=== PATIENT | female | born 1975 ===

== ENCOUNTER 2018-11-30 09:58 | Inpatient (IN) ==
[2018-11-30] MEDS ORDERED: guaiFENesin 200 MG/10 ML UDCUP PO PRN (11:13)
[2018-11-30] MEDS ORDERED: ACETAMINOPHEN 325 MG TABLET PO PRN (11:13)
[2018-11-30] MEDS ORDERED: PROMETHAZINE INJ 25 MG in SODIUM CHLORIDE 0.9% 50 ML IV PRN (11:13)
[2018-11-30] MEDS ORDERED: traMADol 50 MG TABLET PO PRN (11:13)
[2018-11-30] MEDS ORDERED: chlorproMAZINE 25 MG TABLET PO PRN (11:13)
[2018-11-30] MEDS ORDERED: ALUMINUM/MAGNES/SIMETH MAX STR 30 ML UDCUP PO PRN (11:13)
[2018-11-30] MEDS ORDERED: MYLANTA/LIDO VISC 2:1 300 ML BOTTLE SWISH/SWAL PRN (11:13)
[2018-11-30] MEDS ORDERED: MAGNESIUM HYDROXIDE SUSP 30 ML UDCUP PO PRN (11:13)
[2018-11-30] MEDS ORDERED: BENZTROPINE 2 MG/2 ML AMP IV PRN (11:13)
[2018-11-30] MEDS ORDERED: LOPERAMIDE 2 MG CAPSULE PO PRN ×2 (11:13)
[2018-11-30] MEDS ORDERED: diphenhydrAMINE CAP 25 MG CAPSULE PO PRN (11:13)
[2018-11-30] MEDS ORDERED: chlorproMAZINE INJ 25 MG in SODIUM CHLORIDE 0.9% 100 ML IV PRN (11:13)
[2018-11-30] MEDS ORDERED: TEMAZEPAM 7.5 MG CAPSULE PO PRN (11:13)
[2018-11-30] MEDS ORDERED: chlorproMAZINE INJ 50 MG in SODIUM CHLORIDE 0.9% 100 ML IV PRN (11:13)
[2018-11-30] MEDS ORDERED: MYLANTA/LIDO VISC 2:1 300 ML BOTTLE SWISH/SPIT PRN (11:13)
[2018-11-30] MEDS ORDERED: ALPRAZolam 0.25 MG TABLET PO PRN (11:13)
[2018-11-30] MEDS ORDERED: LACTULOSE 20 GM/30 ML UDCUP PO PRN (11:13)
[2018-11-30 11:41] LABS: Basophils % 0.4 % (0.0-0.8); Eosinophils # 0.2 10*3/uL (0.0-0.87); Hematocrit 35.4 VOL% (35.7-47.0); Hemoglobin 11.3 GM/DL (12.0-16.0); Immature Granulocytes % 0.3 %; Immature Granulocytes Absolute 0.02 #; Lymphocytes # 2.3 10*3/uL (1.4-4.0); Mean Corpuscular HGB Conc 31.9 GM/DL (32-36); Mean Corpuscular Volume 90.3 FL (87-102); Mean Platelet Volume 10.2 FL (9.6-12.0); Monocytes % 4.9 % (1.7-12.7); Neutrophils % 60.4 % (38.7-73.9); Platelet Count 208 T/CUMM (130-400); Red Blood Count 3.92 MC/CUMM (3.8-5.5); Red Cell Distribution Width 14.1 % (9.3-17.3); White Blood Count 7.4 T/CUMM (4-12)
[2018-11-30 12:00] LABS: Bilirubin,Total 0.5 MG/DL (0.2-1.0); Calcium 8.3 MG/DL (8.5-10.1); Osmolality,Calculated 288.7 MOS/KG (273-304); Total Protein 6.6 G/DL (6.4-8.3); Uric Acid 3.2 MG/DL (2.6-6.0)
[2018-11-30] MEDS ORDERED: GLUCAGON 1 MG VIAL IM PRN (13:25)
[2018-11-30] MEDS ORDERED: DEXTROSE 50% 25 GM/50 ML VIAL IV PRN (13:25)
[2018-11-30 14:04] LABS: Apearance,Urine CLEAR (Clear); Bilirubin,Urine Negative (Negative); Blood, Urine Large mg/dL (Negative); Glucose,Urine (UA) >=500 mg/dL (Negative); Ketones,Urine 5 mg/dL (Negative); Mucus,Urine Occasional /LPF (Occasional); Nitrite,Urine Negative (Negative); Protein,Urine Negative; RBC,Urine 211 /HPF (0-4); Squamous Epithelial Cell,Urine Occasional /HPF (0-10); Urine Color Yellow (Yellow); Urine Specific Gravity 1.036 (1.001-1.035); WBC,Urine 1 /HPF (0-6)
[2018-11-30] MEDS: INSULIN REGULAR 100 UNIT/ML SUBCUT SCH ×2 (16:30→20:15)
[2018-12-01] MEDS ORDERED: PROMETHAZINE 25 MG TABLET PO PRN (09:12)
[2018-12-01] MEDS ORDERED: MOMETASONE/FORMOTEROL 200-5 INHALER 8.8 GM INH PRN (09:12)
[2018-12-01] MEDS: INSULIN REGULAR 100 UNIT/ML SUBCUT SCH ×4 (09:48→20:57)
[2018-12-01] MEDS: glyBURIDE/METFORMIN 5-500 MG TABLET PO SCH ×2 (09:49→20:56)
[2018-12-01] MEDS: CHOLECALCIFEROL 5,000 UNIT TABLET PO SCH ×2 (09:49→20:56)
[2018-12-01] MEDS: CALCIUM (CARBONATE) 500 MG TABLET PO SCH ×2 (09:49→15:55)
[2018-12-01] MEDS ORDERED: ALBUTEROL 2.5 MG/3 ML NEB RESP TX PRN (11:00)
[2018-12-01] MEDS: ONDANSETRON 4 MG/2 ML VIAL IV PRN (20:05)
[2018-12-01] MEDS: DILTIAZEM CD 240 MG CAPSULE PO SCH (20:57)
[2018-12-02] MEDS: glyBURIDE/METFORMIN 5-500 MG TABLET PO SCH ×2 (09:02→20:42)
[2018-12-02] MEDS: CHOLECALCIFEROL 5,000 UNIT TABLET PO SCH ×2 (09:02→20:42)
[2018-12-02] MEDS: CALCIUM (CARBONATE) 500 MG TABLET PO SCH ×2 (09:03→17:46)
[2018-12-02] MEDS: INSULIN REGULAR 100 UNIT/ML SUBCUT SCH ×5 (09:08→20:56)
[2018-12-02] MEDS ORDERED: FONDAPARINUX 2.5 MG/0.5 ML SYRINGE SUBCUT SCH (11:00)
[2018-12-02] MEDS: ONDANSETRON 4 MG/2 ML VIAL IV PRN ×2 (12:31→17:46)
[2018-12-02] MEDS: DILTIAZEM CD 240 MG CAPSULE PO SCH (20:42)
[2018-12-03 08:37] VITALS: BP 125/73
[2018-12-03] MEDS: CALCIUM (CARBONATE) 500 MG TABLET PO SCH (10:21)
[2018-12-03] MEDS: INSULIN REGULAR 100 UNIT/ML SUBCUT SCH (10:21)
[2018-12-03] MEDS: glyBURIDE/METFORMIN 5-500 MG TABLET PO SCH (10:21)
[2018-12-03] MEDS: CHOLECALCIFEROL 5,000 UNIT TABLET PO SCH (10:22)
== END 2018-12-03 11:01 | disposition home or self-care (01) | DRG 645 ==
LOC: N.4E 09:58
PROVIDERS: ADMIT Specialist; ATTEND Specialist

== ENCOUNTER 2022-03-20 16:00 | Inpatient (IN) ==
[2022-03-20] MEDS ORDERED: SODIUM CHLORIDE 0.9% 1,000 ML IV STA (16:58)
[2022-03-20] MEDS ORDERED: ONDANSETRON 4 MG/2 ML VIAL IV STA (16:58)
[2022-03-20 16:59] LABS: Basophils # 0.1 10*3/uL (0.0-0.2); Basophils % 0.3 % (0.0-0.8); Eosinophils # 0.1 10*3/uL (0.0-0.87); Eosinophils % 0.5 % (0.00-10.9); Hematocrit 31.8 VOL% (35.7-47.0); Hemoglobin 10.5 GM/DL (12.0-16.0); Immature Granulocytes % 0.8 %; Immature Granulocytes Absolute 0.13 #; Lymphocytes # 2.5 10*3/uL (1.4-4.0); Lymphocytes % 14.7 % (21.3-54.2); Mean Corpuscular Volume 98.5 FL (87-102); Mean Platelet Volume 9.6 FL (9.6-12.0); Monocytes % 5.7 % (1.7-12.7); Platelet Count 233 T/CUMM (130-400); Red Blood Count 3.23 MC/CUMM (3.8-5.5); Red Cell Distribution Width 13.2 % (9.3-17.3); White Blood Count 16.8 T/CUMM (4-12)
[2022-03-20 17:13] LABS: Albumin 2.2 G/DL (3.4-5.0); Bilirubin,Total 1.3 MG/DL (0.20-1.00); Calcium 6.9 MG/DL (8.5-10.1); Potassium 3.1 MMOL/L (3.5-5.1); Total Protein 6.9 G/DL (6.4-8.2)
[2022-03-20] MEDS ORDERED: DEXTROSE 10% 250 ML BAG IV PRN (17:42)
[2022-03-20] MEDS ORDERED: GLUCAGON 1 MG VIAL IM PRN (17:42)
[2022-03-20] MEDS ORDERED: MAGNESIUM HYDROXIDE SUSP 30 ML UDCUP PO PRN (17:42)
[2022-03-20] MEDS ORDERED: BISACODYL 10 MG SUPP RECTAL PRN (17:42)
[2022-03-20] MEDS ORDERED: PROMETHAZINE 25 MG/1 ML VIAL IM PRN (17:42)
[2022-03-20] MEDS ORDERED: IBUPROFEN 800 MG TABLET PO PRN (17:42)
[2022-03-20] MEDS: INSULIN REGULAR 100 UNIT/ML SUBCUT SCH ×2 (17:59→23:39)
[2022-03-20] MEDS: MEPERIDINE 50 MG/1 ML VIAL IV SCH (18:00)
[2022-03-20] MEDS: CLINDAMYCIN INJ 900 MG/50 ML PREMIX IV SCH (18:03)
[2022-03-20] MEDS: LACTATED RINGERS 1,000 ML IV SCH (18:40)
[2022-03-20] MEDS: AMPICILLIN INJ 2,000 MG in SODIUM CHLORIDE 0.9% 100 ML IV SCH (18:43)
[2022-03-20] MEDS: DOCUSATE SODIUM 100 MG CAPSULE PO SCH (20:35)
[2022-03-20] MEDS: GENTAMICIN INJ 360 MG in SODIUM CHLORIDE 0.9% 100 ML IV SCH (21:19)
[2022-03-21] MEDS: MEPERIDINE 50 MG/1 ML VIAL IV SCH ×3 (00:41→10:59)
[2022-03-21] MEDS: AMPICILLIN INJ 2,000 MG in SODIUM CHLORIDE 0.9% 100 ML IV SCH ×5 (00:42→23:56)
[2022-03-21] MEDS: CLINDAMYCIN INJ 900 MG/50 ML PREMIX IV SCH ×3 (02:33→18:02)
[2022-03-21 04:11] LABS: Basophils # 0.1 10*3/uL (0.0-0.2); Basophils % 0.3 % (0.0-0.8); Eosinophils # 0.1 10*3/uL (0.0-0.87); Eosinophils % 0.4 % (0.00-10.9); Hematocrit 28.4 VOL% (35.7-47.0); Hemoglobin 9.4 GM/DL (12.0-16.0); Immature Granulocytes % 0.8 %; Immature Granulocytes Absolute 0.14 #; Lymphocytes # 2.1 10*3/uL (1.4-4.0); Mean Corpuscular HGB Conc 33.1 GM/DL (32-36); Mean Platelet Volume 9.6 FL (9.6-12.0); Monocytes % 5.6 % (1.7-12.7); Neutrophils % 80.9 % (38.7-73.9); Platelet Count 202 T/CUMM (130-400); Red Blood Count 2.87 MC/CUMM (3.8-5.5); Red Cell Distribution Width 13.1 % (9.3-17.3); White Blood Count 17.8 T/CUMM (4-12)
[2022-03-21] MEDS: LACTATED RINGERS 1,000 ML IV SCH ×3 (04:30→23:56)
[2022-03-21] MEDS: INSULIN REGULAR 100 UNIT/ML SUBCUT SCH ×3 (05:16→17:52)
[2022-03-21] MEDS: ONDANSETRON 4 MG/2 ML VIAL IV PRN (06:07)
[2022-03-21] MEDS: DOCUSATE SODIUM 100 MG CAPSULE PO SCH ×2 (10:12→20:49)
[2022-03-21] MEDS: POTASSIUM CHLORIDE RIDER 10 MEQ/100 ML PREMIX IV PRN ×4 (15:04→18:49)
[2022-03-21] MEDS: GENTAMICIN INJ 360 MG in SODIUM CHLORIDE 0.9% 100 ML IV SCH (20:48)
[2022-03-21] MEDS: MEPERIDINE 50 MG/1 ML VIAL IV PRN (23:57)
[2022-03-22] MEDS: INSULIN REGULAR 100 UNIT/ML SUBCUT SCH ×5 (00:06→21:22)
[2022-03-22] MEDS: CLINDAMYCIN INJ 900 MG/50 ML PREMIX IV SCH ×2 (02:58→09:50)
[2022-03-22 05:05] LABS: Basophils # 0.1 10*3/uL (0.0-0.2); Basophils % 0.3 % (0.0-0.8); Eosinophils # 0.1 10*3/uL (0.0-0.87); Eosinophils % 0.5 % (0.00-10.9); Hematocrit 28.2 VOL% (35.7-47.0); Hemoglobin 9.2 GM/DL (12.0-16.0); Immature Granulocytes % 1.7 %; Immature Granulocytes Absolute 0.33 #; Lymphocytes # 2.4 10*3/uL (1.4-4.0); Lymphocytes % 12.5 % (21.3-54.2); Mean Corpuscular HGB Conc 32.6 GM/DL (32-36); Mean Platelet Volume 9.6 FL (9.6-12.0); Monocytes # 1.1 10*3/uL (0.11-0.8); Monocytes % 5.9 % (1.7-12.7); Neutrophils % 79.1 % (38.7-73.9); Platelet Count 248 T/CUMM (130-400); Red Blood Count 2.82 MC/CUMM (3.8-5.5); Red Cell Distribution Width 13.2 % (9.3-17.3); White Blood Count 19.3 T/CUMM (4-12)
[2022-03-22] MEDS: MEPERIDINE 50 MG/1 ML VIAL IV PRN ×2 (05:12→11:49)
[2022-03-22] MEDS: ONDANSETRON 4 MG/2 ML VIAL IV PRN (05:20)
[2022-03-22] MEDS: HYDROmorphone 1 MG/1 ML SYRINGE IV PRN (05:54)
[2022-03-22] MEDS: AMPICILLIN INJ 2,000 MG in SODIUM CHLORIDE 0.9% 100 ML IV SCH ×2 (05:54→12:19)
[2022-03-22] MEDS: LACTATED RINGERS 1,000 ML IV SCH ×4 (09:51→23:40)
[2022-03-22 09:53] LABS: Bilirubin,Total 1.2 MG/DL (0.20-1.00); Calcium 7.1 MG/DL (8.5-10.1); Osmolality,Calculated 269.1 MOS/KG (273-304); Total Protein 6.9 G/DL (6.4-8.2)
[2022-03-22 10:30] LABS: Basophils % 0.3 % (0.0-0.8); Hematocrit 36.1 VOL% (35.7-47.0); Immature Granulocytes % 2.5 %; Immature Granulocytes Absolute 0.18 #; Lymphocytes # 0.9 10*3/uL (1.4-4.0); Lymphocytes % 12.7 % (21.3-54.2); Mean Corpuscular Volume 98.4 FL (87-102); Mean Platelet Volume 9.6 FL (9.6-12.0); Monocytes # 0.3 10*3/uL (0.11-0.8); Monocytes % 4.7 % (1.7-12.7); Neutrophils % 79.8 % (38.7-73.9); Red Cell Distribution Width 13.2 % (9.3-17.3)
[2022-03-22 10:32] LABS: Hemoglobin 11.9 GM/DL (12.0-16.0); Platelet Count 309 T/CUMM (130-400); Red Blood Count 3.67 MC/CUMM (3.8-5.5); White Blood Count 7.2 T/CUMM (4-12)
[2022-03-22] MEDS: DOCUSATE SODIUM 100 MG CAPSULE PO SCH ×2 (11:20→21:22)
[2022-03-22 11:23] LABS: Band Neutrophils 14 % (0-10); Eosinophils 1 % (0-10); Lymphocytes 10 % (20-55); Nucleated Red Blood Cells 1 /100 WBC (0-5); Total Cells Counted 100
[2022-03-22] MEDS ORDERED: SODIUM CHLORIDE 0.9% 1,000 ML IV ONE ×2 (12:49→15:59)
[2022-03-22 13:58] LABS: Albumin 1.9 G/DL (3.4-5.0); Bilirubin,Total 1.2 MG/DL (0.20-1.00); Calcium 6.6 MG/DL (8.5-10.1); Osmolality,Calculated 266.2 MOS/KG (273-304); Potassium 3.1 MMOL/L (3.5-5.1); Total Protein 5.7 G/DL (6.4-8.2)
[2022-03-22] MEDS: PIPERACILLIN/TAZOBACTAM 3,375 MG in SODIUM CHLORIDE 0.9% 100 ML IV SCH ×2 (14:26→21:04)
[2022-03-22] MEDS: POTASSIUM CHLORIDE RIDER 10 MEQ/100 ML PREMIX IV PRN ×2 (14:28→15:38)
[2022-03-22] MEDS ORDERED: MAGNESIUM SULF RIDER 2 GM/50 ML PREMIX IV ONE (16:01)
[2022-03-22] MEDS ORDERED: MIDAZOLAM 2 MG/2 ML VIAL IV ONE (17:48)
[2022-03-22] MEDS ORDERED: NOREPINEPHRINE 4 MG/4 ML VIAL IV ONE (19:19)
[2022-03-22] MEDS: PHENYLEPHRINE DRIP 40 MG/250 ML PREMIX IV PRN (19:20)
[2022-03-23] MEDS: PHENYLEPHRINE DRIP 40 MG/250 ML PREMIX IV PRN ×4 (00:45→19:33)
[2022-03-23] MEDS ORDERED: SODIUM CHLORIDE 0.9% 500 ML IV ONE (03:50)
[2022-03-23] MEDS: LACTATED RINGERS 1,000 ML IV SCH ×4 (03:58→21:23)
[2022-03-23] MEDS: HYDROmorphone 1 MG/1 ML SYRINGE IV PRN ×3 (04:40→21:05)
[2022-03-23 04:53] LABS: Basophils % 0.1 % (0.0-0.8); Hematocrit 31.1 VOL% (35.7-47.0); Hemoglobin 10.5 GM/DL (12.0-16.0); Immature Granulocytes % 4.4 %; Lymphocytes # 1.5 10*3/uL (1.4-4.0); Lymphocytes % 4.7 % (21.3-54.2); Mean Corpuscular HGB Conc 33.8 GM/DL (32-36); Mean Corpuscular Volume 97.8 FL (87-102); Mean Platelet Volume 9.7 FL (9.6-12.0); Monocytes # 0.8 10*3/uL (0.11-0.8); Monocytes % 2.6 % (1.7-12.7); Neutrophils % 88.2 % (38.7-73.9); Platelet Count 278 T/CUMM (130-400); Red Blood Count 3.18 MC/CUMM (3.8-5.5); Red Cell Distribution Width 13.7 % (9.3-17.3); White Blood Count 32.1 T/CUMM (4-12)
[2022-03-23 05:03] LABS: Calcium 6.2 MG/DL (8.5-10.1); Osmolality,Calculated 268.1 MOS/KG (273-304); Potassium 3.4 MMOL/L (3.5-5.1)
[2022-03-23] MEDS: PIPERACILLIN/TAZOBACTAM 3,375 MG in SODIUM CHLORIDE 0.9% 100 ML IV SCH ×3 (05:55→21:05)
[2022-03-23] MEDS ORDERED: MAGNESIUM SULF RIDER 4 GM/100 ML PREMIX IV ONE (06:25)
[2022-03-23 06:26] LABS: Band Neutrophils 20 % (0-10); Lymphocytes 7 % (20-55); Metamyelocytes 1 %; Total Cells Counted 100
[2022-03-23 06:28] LABS: Macrocytosis Slight; Polychromasia Slight
[2022-03-23] MEDS: POTASSIUM CHLORIDE RIDER 10 MEQ/100 ML PREMIX IV PRN ×3 (06:50→12:33)
[2022-03-23] MEDS: INSULIN REGULAR 100 UNIT/ML SUBCUT SCH ×4 (07:39→20:34)
[2022-03-23] MEDS ORDERED: CALCIUM GLUCONATE RIDER 1,000 MG/50 ML PREMIX IV ONE (07:56)
[2022-03-23 09:05] LABS: INR 1.7; PT Patient Result 18.1 SECS (10.1-12.1)
[2022-03-23] MEDS ORDERED: fentaNYL 100 MCG/2 ML VIAL ONE (09:57)
[2022-03-23] MEDS ORDERED: MIDAZOLAM 2 MG/2 ML VIAL ONE (09:57)
[2022-03-23] MEDS: LEVOTHYROXINE 100 MCG TABLET PO SCH (12:01)
[2022-03-23] MEDS: PANTOPRAZOLE 40 MG VIAL IV SCH (12:01)
[2022-03-23] MEDS: DOCUSATE SODIUM 100 MG CAPSULE PO SCH ×2 (12:01→21:11)
[2022-03-24] MEDS: PHENYLEPHRINE DRIP 40 MG/250 ML PREMIX IV PRN ×2 (02:15→10:56)
[2022-03-24] MEDS: HYDROmorphone 1 MG/1 ML SYRINGE IV PRN ×2 (02:30→21:08)
[2022-03-24 04:00] LABS: Basophils # 0.2 10*3/uL (0.0-0.2); Basophils % 0.4 % (0.0-0.8); Eosinophils % 0.1 % (0.00-10.9); Hematocrit 34.7 VOL% (35.7-47.0); Hemoglobin 11.3 GM/DL (12.0-16.0); Immature Granulocytes % 3.7 %; Immature Granulocytes Absolute 1.27 #; Lymphocytes # 1.4 10*3/uL (1.4-4.0); Lymphocytes % 4.2 % (21.3-54.2); Mean Corpuscular HGB Conc 32.6 GM/DL (32-36); Mean Corpuscular Volume 100.3 FL (87-102); Mean Platelet Volume 9.7 FL (9.6-12.0); Monocytes # 0.7 10*3/uL (0.11-0.8); Monocytes % 2.1 % (1.7-12.7); Neutrophils % 89.5 % (38.7-73.9); Platelet Count 209 T/CUMM (130-400); Red Blood Count 3.46 MC/CUMM (3.8-5.5); Red Cell Distribution Width 14.1 % (9.3-17.3); White Blood Count 33.9 T/CUMM (4-12)
[2022-03-24 04:23] LABS: Albumin 1.6 G/DL (3.4-5.0); Band Neutrophils 4 % (0-10); Bilirubin,Total 1.5 MG/DL (0.20-1.00); Calcium 6.9 MG/DL (8.5-10.1); Lymphocytes 3 % (20-55); Osmolality,Calculated 264.5 MOS/KG (273-304); Platelet Estimate Adequate; Potassium 3.9 MMOL/L (3.5-5.1); Total Cells Counted 100; Total Protein 6.3 G/DL (6.4-8.2)
[2022-03-24] MEDS: PIPERACILLIN/TAZOBACTAM 3,375 MG in SODIUM CHLORIDE 0.9% 100 ML IV SCH ×3 (05:00→20:58)
[2022-03-24] MEDS: LACTATED RINGERS 1,000 ML IV SCH ×5 (05:00→19:20)
[2022-03-24] MEDS: INSULIN REGULAR 100 UNIT/ML SUBCUT SCH ×4 (07:31→20:15)
[2022-03-24] MEDS: DOCUSATE SODIUM 100 MG CAPSULE PO SCH ×2 (08:47→20:05)
[2022-03-24] MEDS: PANTOPRAZOLE 40 MG VIAL IV SCH (08:48)
[2022-03-24] MEDS: LEVOTHYROXINE 100 MCG TABLET PO SCH (08:48)
[2022-03-24] MEDS ORDERED: LINEZOLID INJ 600 MG/300 ML PREMIX IV SCH (11:00)
[2022-03-24] MEDS: ONDANSETRON 4 MG/2 ML VIAL IV PRN (15:01)
[2022-03-25] MEDS: LACTATED RINGERS 1,000 ML IV SCH ×3 (02:42→09:57)
[2022-03-25 03:49] LABS: Basophils # 0.1 10*3/uL (0.0-0.2); Basophils % 0.2 % (0.0-0.8); Eosinophils % 0.1 % (0.00-10.9); Immature Granulocytes % 1.5 %; Immature Granulocytes Absolute 0.38 #; Lymphocytes # 1.3 10*3/uL (1.4-4.0); Lymphocytes % 5.2 % (21.3-54.2); Mean Corpuscular HGB Conc 32.3 GM/DL (32-36); Mean Corpuscular Volume 100.3 FL (87-102); Mean Platelet Volume 9.9 FL (9.6-12.0); Monocytes # 0.4 10*3/uL (0.11-0.8); Monocytes % 1.5 % (1.7-12.7); Neutrophils % 91.5 % (38.7-73.9); Platelet Count 167 T/CUMM (130-400); Red Blood Count 3.09 MC/CUMM (3.8-5.5); Red Cell Distribution Width 14.1 % (9.3-17.3); White Blood Count 25.4 T/CUMM (4-12)
[2022-03-25 04:09] LABS: Osmolality,Calculated 265.5 MOS/KG (273-304); Potassium 3.8 MMOL/L (3.5-5.1)
[2022-03-25 04:10] LABS: Band Neutrophils 2 % (0-10); Lymphocytes 7 % (20-55); Total Cells Counted 100
[2022-03-25 04:11] LABS: Macrocytosis Slight
[2022-03-25 04:12] LABS: Polychromasia Slight
[2022-03-25] MEDS: POTASSIUM CHLORIDE RIDER 10 MEQ/100 ML PREMIX IV PRN ×2 (05:05→06:05)
[2022-03-25] MEDS: PIPERACILLIN/TAZOBACTAM 3,375 MG in SODIUM CHLORIDE 0.9% 100 ML IV SCH ×3 (05:06→20:07)
[2022-03-25] MEDS: INSULIN REGULAR 100 UNIT/ML SUBCUT SCH ×4 (07:43→21:02)
[2022-03-25] MEDS: PANTOPRAZOLE 40 MG VIAL IV SCH (08:53)
[2022-03-25] MEDS ORDERED: FUROSEMIDE 40 MG/4 ML VIAL IV ONE ×3 (11:50→23:50)
[2022-03-25] MEDS: HYDROmorphone 1 MG/1 ML SYRINGE IV PRN (13:12)
[2022-03-25] MEDS ORDERED: GLUCAGON 1 MG VIAL IM PRN (15:49)
[2022-03-25] MEDS ORDERED: DEXTROSE 50% 25 GM/50 ML VIAL IV PRN (15:49)
[2022-03-25] MEDS: LEVOTHYROXINE 100 MCG TABLET PO SCH (16:05)
[2022-03-25] MEDS: DOCUSATE SODIUM 100 MG CAPSULE PO SCH ×2 (16:05→20:07)
[2022-03-26] MEDS: HYDROmorphone 1 MG/1 ML SYRINGE IV PRN (00:02)
[2022-03-26 04:08] LABS: Basophils # 0.1 10*3/uL (0.0-0.2); Basophils % 0.4 % (0.0-0.8); Eosinophils # 0.1 10*3/uL (0.0-0.87); Eosinophils % 0.3 % (0.00-10.9); Hematocrit 32.6 VOL% (35.7-47.0); Hemoglobin 10.5 GM/DL (12.0-16.0); Immature Granulocytes % 1.8 %; Immature Granulocytes Absolute 0.39 #; Lymphocytes # 1.5 10*3/uL (1.4-4.0); Lymphocytes % 6.9 % (21.3-54.2); Mean Corpuscular HGB Conc 32.2 GM/DL (32-36); Mean Platelet Volume 9.4 FL (9.6-12.0); Monocytes # 0.6 10*3/uL (0.11-0.8); Monocytes % 2.9 % (1.7-12.7); NRBC # 0.02 10*3/uL; Neutrophils % 87.7 % (38.7-73.9); Platelet Count 175 T/CUMM (130-400); Red Blood Count 3.26 MC/CUMM (3.8-5.5); Red Cell Distribution Width 13.9 % (9.3-17.3); White Blood Count 21.5 T/CUMM (4-12)
[2022-03-26 04:26] LABS: Calcium 7.1 MG/DL (8.5-10.1); Osmolality,Calculated 266.2 MOS/KG (273-304); Potassium 3.4 MMOL/L (3.5-5.1)
[2022-03-26 04:31] LABS: Lymphocytes 4 % (20-55); Platelet Estimate Adequate; Total Cells Counted 100
[2022-03-26] MEDS: PIPERACILLIN/TAZOBACTAM 3,375 MG in SODIUM CHLORIDE 0.9% 100 ML IV SCH (05:10)
[2022-03-26] MEDS: POTASSIUM CHLORIDE RIDER 10 MEQ/100 ML PREMIX IV PRN ×2 (05:10→06:14)
[2022-03-26] MEDS ORDERED: ENOXAPARIN 40 MG/0.4 ML SYRINGE SUBCUT SCH (08:00)
[2022-03-26] MEDS: LEVOTHYROXINE 100 MCG TABLET PO SCH (08:01)
[2022-03-26] MEDS: DOCUSATE SODIUM 100 MG CAPSULE PO SCH (08:01)
[2022-03-26] MEDS: INSULIN REGULAR 100 UNIT/ML SUBCUT SCH ×4 (08:08→21:13)
[2022-03-26] MEDS ORDERED: POTASSIUM CHLORIDE 20 MEQ TABLET PO ONE (08:36)
[2022-03-26] MEDS ORDERED: FUROSEMIDE 40 MG/4 ML VIAL IV SCH (09:00)
[2022-03-26] MEDS: FUROSEMIDE 40 MG/4 ML VIAL IV SCH (10:38)
[2022-03-26] MEDS: cefTRIAXone 2,000 MG in SODIUM CHLORIDE 0.9% 100 ML IV SCH (10:38)
[2022-03-27] MEDS: HYDROmorphone 1 MG/1 ML SYRINGE IV PRN (04:28)
[2022-03-27 05:14] LABS: Basophils # 0.1 10*3/uL (0.0-0.2); Basophils % 0.5 % (0.0-0.8); Eosinophils % 0.2 % (0.00-10.9); Hematocrit 30.9 VOL% (35.7-47.0); Hemoglobin 10.2 GM/DL (12.0-16.0); Immature Granulocytes % 7.5 %; Immature Granulocytes Absolute 1.27 #; Lymphocytes # 2.2 10*3/uL (1.4-4.0); Lymphocytes % 12.7 % (21.3-54.2); Mean Corpuscular Volume 97.5 FL (87-102); Mean Platelet Volume 9.6 FL (9.6-12.0); Monocytes # 1.2 10*3/uL (0.11-0.8); Monocytes % 6.9 % (1.7-12.7); NRBC # 0.05 10*3/uL; Neutrophils % 72.2 % (38.7-73.9); Platelet Count 177 T/CUMM (130-400); Red Blood Count 3.17 MC/CUMM (3.8-5.5); Red Cell Distribution Width 13.7 % (9.3-17.3); White Blood Count 16.9 T/CUMM (4-12)
[2022-03-27 05:36] LABS: Albumin 1.6 G/DL (3.4-5.0); Bilirubin,Total 1.4 MG/DL (0.20-1.00); Calcium 7.3 MG/DL (8.5-10.1); Osmolality,Calculated 265.4 MOS/KG (273-304); Potassium 3.2 MMOL/L (3.5-5.1); Total Protein 6.3 G/DL (6.4-8.2)
[2022-03-27 05:38] LABS: Eosinophils 1 % (0-10); Hypochromia Slight; Lymphocytes 12 % (20-55); Macrocytosis Slight; Total Cells Counted 100
[2022-03-27 05:39] LABS: Platelet Estimate Adequate; Polychromasia Slight
[2022-03-27] MEDS: INSULIN REGULAR 100 UNIT/ML SUBCUT SCH ×4 (07:50→20:29)
[2022-03-27] MEDS: cefTRIAXone 2,000 MG in SODIUM CHLORIDE 0.9% 100 ML IV SCH (08:58)
[2022-03-27] MEDS: POTASSIUM CHLORIDE RIDER 10 MEQ/100 ML PREMIX IV PRN ×4 (09:04→14:17)
[2022-03-27] MEDS: LEVOTHYROXINE 100 MCG TABLET PO SCH (09:58)
[2022-03-27] MEDS: FUROSEMIDE 40 MG/4 ML VIAL IV SCH (10:57)
[2022-03-28 05:11] LABS: Basophils % 0.2 % (0.0-0.8); Eosinophils # 0.1 10*3/uL (0.0-0.87); Eosinophils % 0.4 % (0.00-10.9); Hematocrit 31.8 VOL% (35.7-47.0); Hemoglobin 10.4 GM/DL (12.0-16.0); Immature Granulocytes % 14.7 %; Immature Granulocytes Absolute 2.46 #; Lymphocytes # 2.3 10*3/uL (1.4-4.0); Lymphocytes % 13.9 % (21.3-54.2); Mean Corpuscular HGB Conc 32.7 GM/DL (32-36); Mean Corpuscular Volume 97.2 FL (87-102); Mean Platelet Volume 9.5 FL (9.6-12.0); Monocytes # 1.4 10*3/uL (0.11-0.8); Monocytes % 8.4 % (1.7-12.7); NRBC # 0.12 10*3/uL; Neutrophils % 62.4 % (38.7-73.9); Platelet Count 166 T/CUMM (130-400); Red Blood Count 3.27 MC/CUMM (3.8-5.5); White Blood Count 16.8 T/CUMM (4-12)
[2022-03-28 05:34] LABS: Albumin 1.5 G/DL (3.4-5.0); Bilirubin,Total 1.3 MG/DL (0.20-1.00); Calcium 7.4 MG/DL (8.5-10.1); Osmolality,Calculated 265.4 MOS/KG (273-304); Potassium 3.5 MMOL/L (3.5-5.1); Total Protein 6.4 G/DL (6.4-8.2)
[2022-03-28 05:55] LABS: Lymphocytes 9 % (20-55); Nucleated Red Blood Cells 1 /100 WBC (0-5); Total Cells Counted 100
[2022-03-28 05:56] LABS: Platelet Estimate Adequate
[2022-03-28] MEDS ORDERED: DIAZEPAM 5 MG TABLET PO ONE (07:44)
[2022-03-28] MEDS ORDERED: MIDAZOLAM 2 MG/2 ML VIAL IV ONE (07:46)
[2022-03-28] MEDS ORDERED: fentaNYL 100 MCG/2 ML VIAL IV ONE (07:47)
[2022-03-28] MEDS: SODIUM CHLORIDE 0.45% 1,000 ML IV SCH (08:40)
[2022-03-28] MEDS: INSULIN REGULAR 100 UNIT/ML SUBCUT SCH ×4 (10:09→20:10)
[2022-03-28] MEDS: LEVOTHYROXINE 100 MCG TABLET PO SCH (10:15)
[2022-03-28] MEDS: FUROSEMIDE 40 MG/4 ML VIAL IV SCH (10:16)
[2022-03-28] MEDS: cefTRIAXone 2,000 MG in SODIUM CHLORIDE 0.9% 100 ML IV SCH (10:16)
[2022-03-28] MEDS: HYDROmorphone 1 MG/1 ML SYRINGE IV PRN (20:55)
[2022-03-29 05:09] LABS: Basophils # 0.2 10*3/uL (0.0-0.2); Basophils % 0.7 % (0.0-0.8); Eosinophils % 0.1 % (0.00-10.9); Hematocrit 35.5 VOL% (35.7-47.0); Hemoglobin 11.8 GM/DL (12.0-16.0); Immature Granulocytes % 11.4 %; Lymphocytes # 2.9 10*3/uL (1.4-4.0); Lymphocytes % 10.6 % (21.3-54.2); Mean Corpuscular HGB Conc 33.2 GM/DL (32-36); Mean Corpuscular Volume 97.3 FL (87-102); Mean Platelet Volume 9.1 FL (9.6-12.0); Monocytes # 1.8 10*3/uL (0.11-0.8); Monocytes % 6.7 % (1.7-12.7); NRBC # 0.36 10*3/uL; Neutrophils % 70.5 % (38.7-73.9); Platelet Count 161 T/CUMM (130-400); Red Blood Count 3.65 MC/CUMM (3.8-5.5); Red Cell Distribution Width 14.1 % (9.3-17.3); White Blood Count 27.1 T/CUMM (4-12)
[2022-03-29 05:31] LABS: Lymphocytes 6 % (20-55); Nucleated Red Blood Cells 2 /100 WBC (0-5); Platelet Estimate Adequate; Total Cells Counted 100
[2022-03-29] MEDS: INSULIN REGULAR 100 UNIT/ML SUBCUT SCH ×4 (08:13→20:56)
[2022-03-29] MEDS: SODIUM CHLORIDE 0.45% 1,000 ML IV SCH (09:32)
[2022-03-29] MEDS: DOCUSATE SODIUM 100 MG CAPSULE PO PRN (09:36)
[2022-03-29] MEDS: LEVOTHYROXINE 100 MCG TABLET PO SCH (09:36)
[2022-03-29] MEDS: POTASSIUM CHLORIDE 20 MEQ TABLET PO PRN ×3 (09:36→14:06)
[2022-03-29] MEDS: FUROSEMIDE 40 MG/4 ML VIAL IV SCH (09:37)
[2022-03-29] MEDS: PIPERACILLIN/TAZOBACTAM 3,375 MG in SODIUM CHLORIDE 0.9% 100 ML IV SCH ×2 (09:45→17:25)
[2022-03-30] MEDS: PIPERACILLIN/TAZOBACTAM 3,375 MG in SODIUM CHLORIDE 0.9% 100 ML IV SCH ×3 (02:51→17:58)
[2022-03-30 06:02] LABS: Basophils # 0.1 10*3/uL (0.0-0.2); Basophils % 0.4 % (0.0-0.8); Eosinophils # 0.1 10*3/uL (0.0-0.87); Eosinophils % 0.2 % (0.00-10.9); Hemoglobin 10.3 GM/DL (12.0-16.0); Immature Granulocytes % 8.3 %; Immature Granulocytes Absolute 2.26 #; Lymphocytes # 2.5 10*3/uL (1.4-4.0); Lymphocytes % 9.2 % (21.3-54.2); Mean Corpuscular HGB Conc 33.2 GM/DL (32-36); Mean Corpuscular Volume 97.5 FL (87-102); Mean Platelet Volume 9.7 FL (9.6-12.0); Monocytes # 1.4 10*3/uL (0.11-0.8); Monocytes % 5.2 % (1.7-12.7); Neutrophils % 76.7 % (38.7-73.9); Platelet Count 129 T/CUMM (130-400); Red Blood Count 3.18 MC/CUMM (3.8-5.5); Red Cell Distribution Width 14.4 % (9.3-17.3); White Blood Count 27.2 T/CUMM (4-12)
[2022-03-30 06:23] LABS: Lymphocytes 5 % (20-55); Platelet Estimate Normal; Total Cells Counted 100
[2022-03-30 06:24] LABS: Hypochromia Slight
[2022-03-30] MEDS: INSULIN REGULAR 100 UNIT/ML SUBCUT SCH ×4 (08:26→20:29)
[2022-03-30 08:34] LABS: Albumin 1.5 G/DL (3.4-5.0); Bilirubin,Total 1.4 MG/DL (0.20-1.00); Calcium 7.3 MG/DL (8.5-10.1); Osmolality,Calculated 258.9 MOS/KG (273-304); Potassium 3.9 MMOL/L (3.5-5.1); Total Protein 6.4 G/DL (6.4-8.2)
[2022-03-30] MEDS: LEVOTHYROXINE 100 MCG TABLET PO SCH (08:51)
[2022-03-30] MEDS: FUROSEMIDE 40 MG/4 ML VIAL IV SCH (08:51)
[2022-03-30] MEDS: HYDROmorphone 1 MG/1 ML SYRINGE IV PRN ×2 (12:10→20:35)
[2022-03-31] MEDS: PIPERACILLIN/TAZOBACTAM 3,375 MG in SODIUM CHLORIDE 0.9% 100 ML IV SCH ×3 (01:39→17:51)
[2022-03-31 06:12] LABS: Basophils # 0.1 10*3/uL (0.0-0.2); Basophils % 0.4 % (0.0-0.8); Eosinophils % 0.2 % (0.00-10.9); Hematocrit 31.5 VOL% (35.7-47.0); Hemoglobin 10.3 GM/DL (12.0-16.0); Immature Granulocytes % 5.6 %; Immature Granulocytes Absolute 1.49 #; Lymphocytes # 2.1 10*3/uL (1.4-4.0); Mean Corpuscular HGB Conc 32.7 GM/DL (32-36); Mean Platelet Volume 9.5 FL (9.6-12.0); Monocytes # 1.4 10*3/uL (0.11-0.8); Monocytes % 5.1 % (1.7-12.7); NRBC # 0.03 10*3/uL; Neutrophils % 80.7 % (38.7-73.9); Platelet Count 127 T/CUMM (130-400); Red Blood Count 3.15 MC/CUMM (3.8-5.5); Red Cell Distribution Width 14.8 % (9.3-17.3); White Blood Count 26.6 T/CUMM (4-12)
[2022-03-31 06:31] LABS: Albumin 1.5 G/DL (3.4-5.0); Bilirubin,Total 1.5 MG/DL (0.20-1.00); Calcium 7.4 MG/DL (8.5-10.1); Osmolality,Calculated 256.2 MOS/KG (273-304); Potassium 3.6 MMOL/L (3.5-5.1); Total Protein 6.8 G/DL (6.4-8.2)
[2022-03-31 06:48] LABS: Band Neutrophils 2 % (0-10); Lymphocytes 4 % (20-55); Total Cells Counted 100
[2022-03-31 06:49] LABS: Hypochromia Slight; Macrocytosis Slight; Platelet Estimate Adequate; Polychromasia Slight
[2022-03-31] MEDS: INSULIN REGULAR 100 UNIT/ML SUBCUT SCH ×4 (09:49→21:45)
[2022-03-31] MEDS: LEVOTHYROXINE 100 MCG TABLET PO SCH (10:10)
[2022-03-31] MEDS: FUROSEMIDE 40 MG/4 ML VIAL IV SCH (10:12)
[2022-03-31] MEDS: DOCUSATE SODIUM 100 MG CAPSULE PO PRN (10:32)
[2022-03-31] MEDS: HYDROmorphone 1 MG/1 ML SYRINGE IV PRN (10:41)
[2022-04-01] MEDS: PIPERACILLIN/TAZOBACTAM 3,375 MG in SODIUM CHLORIDE 0.9% 100 ML IV SCH ×3 (01:24→17:19)
[2022-04-01] MEDS: ACETAMINOPHEN 325 MG TABLET PO PRN ×2 (02:10→08:50)
[2022-04-01 06:11] LABS: Basophils # 0.1 10*3/uL (0.0-0.2); Basophils % 0.3 % (0.0-0.8); Eosinophils % 0.1 % (0.00-10.9); Hematocrit 30.2 VOL% (35.7-47.0); Hemoglobin 9.8 GM/DL (12.0-16.0); Immature Granulocytes % 3.8 %; Immature Granulocytes Absolute 0.92 #; Lymphocytes # 2.4 10*3/uL (1.4-4.0); Lymphocytes % 9.8 % (21.3-54.2); Mean Corpuscular HGB Conc 32.5 GM/DL (32-36); Mean Corpuscular Volume 98.7 FL (87-102); Mean Platelet Volume 9.6 FL (9.6-12.0); Monocytes # 1.4 10*3/uL (0.11-0.8); Monocytes % 5.9 % (1.7-12.7); Neutrophils % 80.1 % (38.7-73.9); Platelet Count 137 T/CUMM (130-400); Red Blood Count 3.06 MC/CUMM (3.8-5.5); White Blood Count 24.2 T/CUMM (4-12)
[2022-04-01 06:43] LABS: Band Neutrophils 1 % (0-10); Eosinophils 1 % (0-10); Hypochromia Slight; Lymphocytes 4 % (20-55); Total Cells Counted 100
[2022-04-01 06:44] LABS: Macrocytosis Slight; Platelet Estimate Adequate; Polychromasia Slight
[2022-04-01] MEDS: INSULIN REGULAR 100 UNIT/ML SUBCUT SCH ×4 (07:42→21:27)
[2022-04-01 08:22] LABS: Calcium 7.2 MG/DL (8.5-10.1); Osmolality,Calculated 259.9 MOS/KG (273-304); Potassium 3.7 MMOL/L (3.5-5.1)
[2022-04-01] MEDS: FUROSEMIDE 40 MG/4 ML VIAL IV SCH (08:49)
[2022-04-01] MEDS: LEVOTHYROXINE 100 MCG TABLET PO SCH (08:49)
[2022-04-01] MEDS: POTASSIUM CHLORIDE 20 MEQ TABLET PO PRN (16:11)
[2022-04-02] MEDS: PIPERACILLIN/TAZOBACTAM 3,375 MG in SODIUM CHLORIDE 0.9% 100 ML IV SCH ×3 (01:30→17:51)
[2022-04-02 05:00] LABS: Basophils # 0.1 10*3/uL (0.0-0.2); Basophils % 0.3 % (0.0-0.8); Eosinophils % 0.1 % (0.00-10.9); Hematocrit 29.4 VOL% (35.7-47.0); Hemoglobin 9.5 GM/DL (12.0-16.0); Immature Granulocytes % 2.9 %; Lymphocytes # 2.1 10*3/uL (1.4-4.0); Lymphocytes % 10.1 % (21.3-54.2); Mean Corpuscular HGB Conc 32.3 GM/DL (32-36); Mean Platelet Volume 9.3 FL (9.6-12.0); Monocytes # 1.4 10*3/uL (0.11-0.8); Monocytes % 6.9 % (1.7-12.7); Neutrophils % 79.7 % (38.7-73.9); Platelet Count 145 T/CUMM (130-400); Red Blood Count 2.91 MC/CUMM (3.8-5.5); Red Cell Distribution Width 15.1 % (9.3-17.3); White Blood Count 20.6 T/CUMM (4-12)
[2022-04-02 05:25] LABS: Calcium 7.2 MG/DL (8.5-10.1); Osmolality,Calculated 259.8 MOS/KG (273-304); Potassium 3.4 MMOL/L (3.5-5.1)
[2022-04-02 05:26] LABS: Hypochromia Slight; Lymphocytes 3 % (20-55); Microcytosis Slight; Platelet Estimate Adequate; Total Cells Counted 100
[2022-04-02] MEDS: INSULIN REGULAR 100 UNIT/ML SUBCUT SCH ×4 (08:15→22:07)
[2022-04-02] MEDS: FUROSEMIDE 40 MG/4 ML VIAL IV SCH (10:10)
[2022-04-02] MEDS: POTASSIUM CHLORIDE 20 MEQ TABLET PO PRN (14:21)
[2022-04-02] MEDS: LEVOTHYROXINE 100 MCG TABLET PO SCH (14:21)
[2022-04-02] MEDS: DOCUSATE SODIUM 100 MG CAPSULE PO PRN (22:15)
[2022-04-03] MEDS: PIPERACILLIN/TAZOBACTAM 3,375 MG in SODIUM CHLORIDE 0.9% 100 ML IV SCH ×3 (02:03→18:12)
[2022-04-03 05:15] LABS: Basophils # 0.1 10*3/uL (0.0-0.2); Basophils % 0.3 % (0.0-0.8); Eosinophils # 0.1 10*3/uL (0.0-0.87); Eosinophils % 0.2 % (0.00-10.9); Hematocrit 29.2 VOL% (35.7-47.0); Hemoglobin 9.6 GM/DL (12.0-16.0); Immature Granulocytes % 1.7 %; Immature Granulocytes Absolute 0.35 #; Lymphocytes # 2.2 10*3/uL (1.4-4.0); Lymphocytes % 10.5 % (21.3-54.2); Mean Corpuscular HGB Conc 32.9 GM/DL (32-36); Mean Corpuscular Volume 99.3 FL (87-102); Mean Platelet Volume 9.1 FL (9.6-12.0); Monocytes # 1.6 10*3/uL (0.11-0.8); Monocytes % 7.9 % (1.7-12.7); Neutrophils % 79.4 % (38.7-73.9); Platelet Count 160 T/CUMM (130-400); Red Blood Count 2.94 MC/CUMM (3.8-5.5); White Blood Count 20.5 T/CUMM (4-12)
[2022-04-03 05:32] LABS: Calcium 7.5 MG/DL (8.5-10.1); Osmolality,Calculated 258.9 MOS/KG (273-304); Potassium 3.6 MMOL/L (3.5-5.1)
[2022-04-03 05:39] LABS: Lymphocytes 10 % (20-55); Total Cells Counted 100
[2022-04-03 05:40] LABS: Hypochromia Slight; Macrocytosis Slight
[2022-04-03 05:41] LABS: Platelet Estimate Adequate; Polychromasia Slight
[2022-04-03] MEDS: INSULIN REGULAR 100 UNIT/ML SUBCUT SCH ×4 (08:23→20:45)
[2022-04-03] MEDS ORDERED: MIDAZOLAM 2 MG/2 ML VIAL IV ONE (10:29)
[2022-04-03] MEDS ORDERED: DIAZEPAM 5 MG TABLET PO ONE (10:29)
[2022-04-03] MEDS ORDERED: SODIUM CHLORIDE 0.45% 1,000 ML IV SCH (10:30)
[2022-04-03] MEDS: fentaNYL 100 MCG/2 ML VIAL IV ONE ×2 (12:06→15:25)
[2022-04-03] MEDS: LEVOTHYROXINE 100 MCG TABLET PO SCH (15:24)
[2022-04-04] MEDS: PIPERACILLIN/TAZOBACTAM 3,375 MG in SODIUM CHLORIDE 0.9% 100 ML IV SCH ×2 (00:22→10:20)
[2022-04-04 04:56] LABS: Basophils # 0.1 10*3/uL (0.0-0.2); Basophils % 0.3 % (0.0-0.8); Eosinophils # 0.1 10*3/uL (0.0-0.87); Eosinophils % 0.3 % (0.00-10.9); Hematocrit 33.2 VOL% (35.7-47.0); Hemoglobin 10.1 GM/DL (12.0-16.0); Immature Granulocytes % 1.6 %; Immature Granulocytes Absolute 0.25 #; Lymphocytes # 2.3 10*3/uL (1.4-4.0); Lymphocytes % 14.1 % (21.3-54.2); Mean Corpuscular HGB Conc 30.4 GM/DL (32-36); Mean Corpuscular Volume 102.8 FL (87-102); Monocytes # 1.3 10*3/uL (0.11-0.8); Monocytes % 8.2 % (1.7-12.7); Neutrophils % 75.5 % (38.7-73.9); Platelet Count 180 T/CUMM (130-400); Red Blood Count 3.23 MC/CUMM (3.8-5.5); Red Cell Distribution Width 15.1 % (9.3-17.3); White Blood Count 15.9 T/CUMM (4-12)
[2022-04-04 05:24] LABS: Calcium 7.7 MG/DL (8.5-10.1); Osmolality,Calculated 262.5 MOS/KG (273-304); Potassium 3.7 MMOL/L (3.5-5.1)
[2022-04-04] MEDS: LEVOTHYROXINE 100 MCG TABLET PO SCH (10:20)
[2022-04-04] MEDS: INSULIN REGULAR 100 UNIT/ML SUBCUT SCH ×2 (10:21→14:54)
[2022-04-04 12:22] VITALS: BP 105/64
== END 2022-04-04 15:30 | disposition home or self-care (01) | DRG 871 ==
LOC: N.ED 16:00 → N.EDINP 17:20 → N.5E 19:12 → N.ICU 03-22 18:15 → N.5E 03-26 08:40
PROVIDERS: ADMIT Obstetrics & Gynecology; ATTEND Obstetrics & Gynecology

== ENCOUNTER 2022-04-28 20:11 | Inpatient (IN) ==
[2022-04-28] MEDS ORDERED: ONDANSETRON 4 MG/2 ML VIAL IV ONE (20:35)
[2022-04-28] MEDS ORDERED: MORPHINE 2 MG/1 ML SYRINGE IV ONE (20:35)
[2022-04-28] MEDS ORDERED: VANCOMYCIN INJ 1,000 MG in SODIUM CHLORIDE 0.9% 250 ML IV STA (20:38)
[2022-04-28] MEDS ORDERED: ACETAMINOPHEN 325 MG TABLET PO PRN (20:43)
[2022-04-28] MEDS: DEXTROSE 5% LACTATED RINGERS 1,000 ML IV SCH (21:56)
[2022-04-28] MEDS: PIPERACILLIN/TAZOBACTAM 3,375 MG in SODIUM CHLORIDE 0.9% 100 ML IV SCH (21:59)
[2022-04-29] MEDS: INSULIN LISPRO 100 UNIT/ML SUBCUT SCH ×4 (01:00→18:10)
[2022-04-29] MEDS: ONDANSETRON 4 MG/2 ML VIAL IV PRN ×2 (04:13→09:08)
[2022-04-29] MEDS: MORPHINE 2 MG/1 ML SYRINGE IV PRN (04:16)
[2022-04-29] MEDS: PIPERACILLIN/TAZOBACTAM 3,375 MG in SODIUM CHLORIDE 0.9% 100 ML IV SCH ×3 (05:37→21:25)
[2022-04-29 06:04] LABS: Basophils % 0.3 % (0.0-0.8); Eosinophils # 0.3 10*3/uL (0.0-0.87); Eosinophils % 3.2 % (0.00-10.9); Hematocrit 29.4 VOL% (35.7-47.0); Hemoglobin 8.9 GM/DL (12.0-16.0); Immature Granulocytes % 0.8 %; Immature Granulocytes Absolute 0.07 #; Lymphocytes # 2.4 10*3/uL (1.4-4.0); Lymphocytes % 27.1 % (21.3-54.2); Mean Corpuscular HGB Conc 30.3 GM/DL (32-36); Mean Corpuscular Volume 103.2 FL (87-102); Mean Platelet Volume 8.5 FL (9.6-12.0); Monocytes # 0.6 10*3/uL (0.11-0.8); Monocytes % 7.1 % (1.7-12.7); Neutrophils % 61.5 % (38.7-73.9); Platelet Count 254 T/CUMM (130-400); Red Blood Count 2.85 MC/CUMM (3.8-5.5); Red Cell Distribution Width 15.7 % (9.3-17.3); White Blood Count 8.7 T/CUMM (4-12)
[2022-04-29 06:34] LABS: Albumin 1.4 G/DL (3.4-5.0); Bilirubin,Total 0.6 MG/DL (0.20-1.00); Osmolality,Calculated 276.5 MOS/KG (273-304); Potassium 3.5 MMOL/L (3.5-5.1)
[2022-04-29 08:08] LABS: INR 1.4; PT Patient Result 14.8 SECS (10.1-12.1)
[2022-04-29] MEDS: VANCOMYCIN INJ 1,250 MG in SODIUM CHLORIDE 0.9% 250 ML IV SCH ×2 (09:53→21:24)
[2022-04-29] MEDS: PANTOPRAZOLE 40 MG TABLET PO SCH (09:56)
[2022-04-29] MEDS ORDERED: GLUCAGON 1 MG VIAL IM PRN ×2 (11:47→18:38)
[2022-04-29] MEDS ORDERED: DEXTROSE 10% 250 ML BAG IV PRN (11:47)
[2022-04-29] MEDS ORDERED: DIAZEPAM 5 MG TABLET PO ONE (13:25)
[2022-04-29] MEDS ORDERED: MIDAZOLAM 2 MG/2 ML VIAL IV ONE (13:25)
[2022-04-29] MEDS ORDERED: fentaNYL 100 MCG/2 ML VIAL IV ONE (13:25)
[2022-04-29] MEDS: DEXTROSE 5% LACTATED RINGERS 1,000 ML IV SCH ×3 (14:02→22:03)
[2022-04-29 15:17] LABS: % Iron Saturation 38.6 % (18-50)
[2022-04-29 15:20] LABS: Folate 3.21 NG/ML (5.38-24.0)
[2022-04-29] MEDS: HYDROmorphone 1 MG/1 ML SYRINGE IV PRN (16:35)
[2022-04-29] MEDS ORDERED: DEXTROSE 50% 25 GM/50 ML VIAL IV PRN (18:38)
[2022-04-29] MEDS: DOCUSATE SODIUM 100 MG CAPSULE PO SCH (21:25)
[2022-04-30] MEDS: INSULIN LISPRO 100 UNIT/ML SUBCUT SCH ×4 (00:55→18:59)
[2022-04-30] MEDS: MORPHINE 2 MG/1 ML SYRINGE IV PRN ×2 (01:34→22:03)
[2022-04-30] MEDS: ONDANSETRON 4 MG/2 ML VIAL IV PRN (01:34)
[2022-04-30 05:05] LABS: Basophils # 0.1 10*3/uL (0.0-0.2); Basophils % 0.6 % (0.0-0.8); Eosinophils # 0.3 10*3/uL (0.0-0.87); Hematocrit 31.3 VOL% (35.7-47.0); Hemoglobin 9.3 GM/DL (12.0-16.0); Immature Granulocytes % 0.6 %; Immature Granulocytes Absolute 0.05 #; Lymphocytes # 2.4 10*3/uL (1.4-4.0); Lymphocytes % 28.4 % (21.3-54.2); Mean Corpuscular HGB Conc 29.7 GM/DL (32-36); Mean Corpuscular Volume 106.5 FL (87-102); Mean Platelet Volume 8.4 FL (9.6-12.0); Monocytes # 0.6 10*3/uL (0.11-0.8); Monocytes % 6.8 % (1.7-12.7); Neutrophils % 59.6 % (38.7-73.9); Platelet Count 239 T/CUMM (130-400); Red Blood Count 2.94 MC/CUMM (3.8-5.5); Red Cell Distribution Width 15.6 % (9.3-17.3); White Blood Count 8.5 T/CUMM (4-12)
[2022-04-30 05:24] LABS: Calcium 6.9 MG/DL (8.5-10.1); Osmolality,Calculated 281.3 MOS/KG (273-304); Potassium 3.7 MMOL/L (3.5-5.1); Risk Ratio 2.13
[2022-04-30] MEDS: PIPERACILLIN/TAZOBACTAM 3,375 MG in SODIUM CHLORIDE 0.9% 100 ML IV SCH ×3 (05:38→22:04)
[2022-04-30] MEDS: LEVOTHYROXINE 200 MCG TABLET PO SCH (05:38)
[2022-04-30] MEDS: DEXTROSE 5% LACTATED RINGERS 1,000 ML IV SCH ×3 (07:18→20:32)
[2022-04-30] MEDS: DILTIAZEM CD 120 MG CAPSULE PO SCH (08:43)
[2022-04-30] MEDS: PANTOPRAZOLE 40 MG TABLET PO SCH (08:43)
[2022-04-30] MEDS: DOCUSATE SODIUM 100 MG CAPSULE PO SCH ×2 (08:44→22:03)
[2022-04-30] MEDS: FERROUS SULFATE 325 MG TABLET PO SCH (08:45)
[2022-04-30] MEDS: HYDROmorphone 1 MG/1 ML SYRINGE IV PRN (08:49)
[2022-04-30] MEDS: VANCOMYCIN INJ 1,250 MG in SODIUM CHLORIDE 0.9% 250 ML IV SCH ×2 (08:50→22:04)
[2022-04-30] MEDS ORDERED: LEVOTHYROXINE 50 MCG TABLET PO SCH (09:00)
[2022-04-30] MEDS: CHOLECALCIFEROL 5,000 UNIT TABLET PO SCH (16:53)
[2022-04-30] MEDS: FOLIC ACID 1 MG TABLET PO SCH (22:03)
[2022-05-01] MEDS: INSULIN LISPRO 100 UNIT/ML SUBCUT SCH ×4 (00:26→17:10)
[2022-05-01] MEDS: MORPHINE 2 MG/1 ML SYRINGE IV PRN ×2 (03:09→09:59)
[2022-05-01 05:32] LABS: Basophils % 0.3 % (0.0-0.8); Eosinophils # 0.5 10*3/uL (0.0-0.87); Eosinophils % 5.7 % (0.00-10.9); Hematocrit 29.6 VOL% (35.7-47.0); Hemoglobin 8.9 GM/DL (12.0-16.0); Immature Granulocytes % 0.9 %; Immature Granulocytes Absolute 0.08 #; Lymphocytes # 3.2 10*3/uL (1.4-4.0); Lymphocytes % 35.8 % (21.3-54.2); Mean Corpuscular HGB Conc 30.1 GM/DL (32-36); Mean Corpuscular Volume 105.3 FL (87-102); Mean Platelet Volume 8.4 FL (9.6-12.0); Monocytes # 0.6 10*3/uL (0.11-0.8); Monocytes % 6.6 % (1.7-12.7); Neutrophils % 50.7 % (38.7-73.9); Platelet Count 222 T/CUMM (130-400); Red Blood Count 2.81 MC/CUMM (3.8-5.5); Red Cell Distribution Width 15.3 % (9.3-17.3); White Blood Count 8.9 T/CUMM (4-12)
[2022-05-01] MEDS: DEXTROSE 5% LACTATED RINGERS 1,000 ML IV SCH ×2 (05:41→19:45)
[2022-05-01] MEDS: PIPERACILLIN/TAZOBACTAM 3,375 MG in SODIUM CHLORIDE 0.9% 100 ML IV SCH ×3 (05:42→20:27)
[2022-05-01] MEDS: LEVOTHYROXINE 200 MCG TABLET PO SCH (05:42)
[2022-05-01 05:52] LABS: Albumin 1.5 G/DL (3.4-5.0); Bilirubin,Total 0.6 MG/DL (0.20-1.00); Calcium 7.1 MG/DL (8.5-10.1); Osmolality,Calculated 275.5 MOS/KG (273-304); Potassium 3.6 MMOL/L (3.5-5.1)
[2022-05-01] MEDS: FOLIC ACID 1 MG TABLET PO SCH ×2 (09:59→20:27)
[2022-05-01] MEDS: PANTOPRAZOLE 40 MG TABLET PO SCH (09:59)
[2022-05-01] MEDS: DOCUSATE SODIUM 100 MG CAPSULE PO SCH ×2 (09:59→20:27)
[2022-05-01] MEDS: FERROUS SULFATE 325 MG TABLET PO SCH (09:59)
[2022-05-01] MEDS: DILTIAZEM CD 120 MG CAPSULE PO SCH (09:59)
[2022-05-01] MEDS: CHOLECALCIFEROL 5,000 UNIT TABLET PO SCH (10:00)
[2022-05-01] MEDS: VANCOMYCIN INJ 1,250 MG in SODIUM CHLORIDE 0.9% 250 ML IV SCH ×2 (10:01→20:26)
[2022-05-01] MEDS ORDERED: LACTULOSE 20 GM/30 ML UDCUP PO ONE (15:48)
[2022-05-01] MEDS: LACTULOSE 20 GM/30 ML UDCUP PO SCH (20:27)
[2022-05-02] MEDS: INSULIN LISPRO 100 UNIT/ML SUBCUT SCH ×4 (00:04→17:31)
[2022-05-02] MEDS: MORPHINE 2 MG/1 ML SYRINGE IV PRN ×2 (03:09→21:59)
[2022-05-02] MEDS: PIPERACILLIN/TAZOBACTAM 3,375 MG in SODIUM CHLORIDE 0.9% 100 ML IV SCH ×3 (05:19→22:02)
[2022-05-02] MEDS: LEVOTHYROXINE 200 MCG TABLET PO SCH (05:30)
[2022-05-02 05:55] LABS: Basophils % 0.5 % (0.0-0.8); Eosinophils # 0.3 10*3/uL (0.0-0.87); Hematocrit 27.9 VOL% (35.7-47.0); Hemoglobin 8.5 GM/DL (12.0-16.0); Immature Granulocytes % 0.9 %; Immature Granulocytes Absolute 0.07 #; Lymphocytes # 2.6 10*3/uL (1.4-4.0); Lymphocytes % 33.1 % (21.3-54.2); Mean Corpuscular HGB Conc 30.5 GM/DL (32-36); Mean Corpuscular Volume 104.1 FL (87-102); Mean Platelet Volume 8.6 FL (9.6-12.0); Monocytes # 0.5 10*3/uL (0.11-0.8); Monocytes % 6.4 % (1.7-12.7); Neutrophils % 55.1 % (38.7-73.9); Platelet Count 193 T/CUMM (130-400); Red Blood Count 2.68 MC/CUMM (3.8-5.5); Red Cell Distribution Width 15.4 % (9.3-17.3)
[2022-05-02 06:15] LABS: Potassium 3.5 MMOL/L (3.5-5.1)
[2022-05-02 06:17] LABS: Alanine Aminotransferase 24 U/L (13-56); Albumin 2.5 G/DL (3.4-5.0); Alkaline Phosphatase 62 U/L (45-117); Aspartate Amino Transferase 6 U/L (0-37); Bilirubin,Total < 0.39 MG/DL (0.20-1.00); Blood Urea Nitrogen 23 MG/DL (7-18); Calcium 8.2 MG/DL (8.5-10.1); Carbon Dioxide 30 MMOL/L (21-32); Chloride 100 MMOL/L (98-107); Glucose 208 MG/DL (74-106); Osmolality,Calculated 282.8 MOS/KG (273-304); Potassium 4.7 MMOL/L (3.5-5.1); Sodium 137 MMOL/L (136-145); Total Protein 5.7 G/DL (6.4-8.2)
[2022-05-02] MEDS: LACTULOSE 20 GM/30 ML UDCUP PO SCH ×2 (08:45→20:57)
[2022-05-02] MEDS: FERROUS SULFATE 325 MG TABLET PO SCH (08:45)
[2022-05-02] MEDS: DILTIAZEM CD 120 MG CAPSULE PO SCH (08:46)
[2022-05-02] MEDS: DOCUSATE SODIUM 100 MG CAPSULE PO SCH ×2 (08:46→20:57)
[2022-05-02] MEDS: FOLIC ACID 1 MG TABLET PO SCH ×2 (08:46→20:57)
[2022-05-02] MEDS: PANTOPRAZOLE 40 MG TABLET PO SCH (08:47)
[2022-05-02] MEDS: POLYETHYLENE GLYCOL POWDER 17 GM PACK PO SCH (08:47)
[2022-05-02] MEDS: CHOLECALCIFEROL 5,000 UNIT TABLET PO SCH (08:47)
[2022-05-02] MEDS: VANCOMYCIN INJ 1,250 MG in SODIUM CHLORIDE 0.9% 250 ML IV SCH ×2 (08:51→20:58)
[2022-05-02] MEDS ORDERED: BISACODYL 10 MG SUPP RECTAL ONE (09:00)
[2022-05-02 12:11] LABS: Mycoplasma pneumoniae Ab, IgG Positive (Negative); Mycoplasma pneumoniae Ab, IgM Reactive (Negative)
[2022-05-03] MEDS: INSULIN LISPRO 100 UNIT/ML SUBCUT SCH ×3 (00:07→11:45)
[2022-05-03] MEDS: MORPHINE 2 MG/1 ML SYRINGE IV PRN (03:54)
[2022-05-03 05:19] LABS: Basophils % 0.1 % (0.0-0.8); Eosinophils # 0.2 10*3/uL (0.0-0.87); Eosinophils % 3.1 % (0.00-10.9); Hematocrit 28.4 VOL% (35.7-47.0); Hemoglobin 8.8 GM/DL (12.0-16.0); Immature Granulocytes % 0.6 %; Immature Granulocytes Absolute 0.04 #; Lymphocytes # 1.8 10*3/uL (1.4-4.0); Lymphocytes % 25.6 % (21.3-54.2); Mean Corpuscular Volume 103.6 FL (87-102); Mean Platelet Volume 8.5 FL (9.6-12.0); Monocytes # 0.4 10*3/uL (0.11-0.8); Neutrophils % 64.6 % (38.7-73.9); Platelet Count 184 T/CUMM (130-400); Red Blood Count 2.74 MC/CUMM (3.8-5.5); Red Cell Distribution Width 15.4 % (9.3-17.3); White Blood Count 7.1 T/CUMM (4-12)
[2022-05-03 05:47] LABS: Albumin 1.4 G/DL (3.4-5.0); Bilirubin,Total 0.9 MG/DL (0.20-1.00); Osmolality,Calculated 278.3 MOS/KG (273-304); Total Protein 6.8 G/DL (6.4-8.2)
[2022-05-03] MEDS: PIPERACILLIN/TAZOBACTAM 3,375 MG in SODIUM CHLORIDE 0.9% 100 ML IV SCH (05:57)
[2022-05-03] MEDS: LEVOTHYROXINE 200 MCG TABLET PO SCH (05:58)
[2022-05-03] MEDS: POTASSIUM CHLORIDE 20 MEQ TABLET PO PRN ×2 (07:00→08:59)
[2022-05-03] MEDS: LACTULOSE 20 GM/30 ML UDCUP PO SCH (08:59)
[2022-05-03] MEDS: POLYETHYLENE GLYCOL POWDER 17 GM PACK PO SCH (08:59)
[2022-05-03] MEDS: PANTOPRAZOLE 40 MG TABLET PO SCH (08:59)
[2022-05-03] MEDS: FOLIC ACID 1 MG TABLET PO SCH (08:59)
[2022-05-03] MEDS: DILTIAZEM CD 120 MG CAPSULE PO SCH (08:59)
[2022-05-03] MEDS: DOCUSATE SODIUM 100 MG CAPSULE PO SCH (08:59)
[2022-05-03] MEDS: CHOLECALCIFEROL 5,000 UNIT TABLET PO SCH (08:59)
[2022-05-03] MEDS: FERROUS SULFATE 325 MG TABLET PO SCH (08:59)
[2022-05-03] MEDS ORDERED: SODIUM PHOSPHATE ENEMA 133 ML BOTTLE RECTAL ONE (10:30)
[2022-05-03] MEDS ORDERED: POTASSIUM CHLORIDE 20 MEQ TABLET PO ONE (10:37)
[2022-05-03] MEDS: VANCOMYCIN INJ 1,250 MG in SODIUM CHLORIDE 0.9% 250 ML IV SCH (11:37)
[2022-05-03 13:49] VITALS: BP 125/80
[2022-05-03] MEDS ORDERED: AZITHROMYCIN 250 MG TABLET PO SCH (15:00)
== END 2022-05-03 14:39 | disposition home health service (06) | DRG 981 ==
LOC: EDUNIT# → N.ED 20:11 → N.3E 20:43
PROVIDERS: ADMIT Student in an Organized Health Care Education/Training Program; ATTEND Student in an Organized Health Care Education/Training Program